=== PATIENT | male | born 1965 | race Caucasian/White ===

== ENCOUNTER 2016-12-26 10:02 | Emergency (ER) | payer MEDICAID ==
[2016-12-26 10:09] VITALS: BMI 27.2
[2016-12-26 10:16] VITALS: TEMP 98.2; O2SAT 98
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
[2016-12-26 11:43] VITALS: BP 128/72; PULSE 72; RESP 18
--- NOTE | 2016-12-26 12:06 | RAD ---
PROCEDURE: Right Foot Radiographs. HISTORY: foot pain, s/p surgery COMPARISON: None. FINDINGS: BONES: Patient is status post multifocal midfoot arthrodesis including the medial cuneiform 1st metatarsal joint and the medial and middle cuneiform joint, both by solitary K-wires. Finally, a solitary K-wire stabilizes the navicular, cuboid and 5th of 5th metatarsal bones. The Lisfranc fractures appreciated with periarticular lucency throughout the midfoot joints suggestive of disuse osteopenia JOINTS: Normal. SOFT TISSUES: Normal. OTHER FINDINGS: None. IMPRESSION: Status post multifocal midfoot arthrodeses with Lisfranc fracture identified. Please see discussion above.
== END 2016-12-26 12:00 | disposition home or self-care (01) ==
LOC: SUPCPDRO 10:02 → C.ER 10:02
DX: G89.18 Other acute postprocedural pain (principal)

== ENCOUNTER 2017-01-18 11:04 | Emergency (ER) | payer MEDICAID ==
[2017-01-18 11:04] VITALS: BMI 27.2
[2017-01-18 11:15] VITALS: O2SAT 99
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
[2017-01-18 13:54] VITALS: PULSE 59
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
[2017-01-18 15:42] VITALS: BP 140/82; RESP 18; TEMP 97.6
== END 2017-01-18 15:42 | disposition home or self-care (01) ==
LOC: C.ER 11:04
DX: S92.901G Unspecified fracture of right foot, subsequent encounter for fracture with delayed healing (principal); V19.40XD Pedal cycle driver injured in collision with unspecified motor vehicles in traffic accident, subsequent encounter
CPT/HCPCS: 97116; 97161; 99284; G8978; G8979; G8980

== ENCOUNTER 2017-02-08 05:39 | Day surgery (SDC) | payer MEDICAID ==
[2017-02-04 08:54] VITALS: BMI 29.4
[2017-02-08 06:51] VITALS: BP 144/86; PULSE 70; RESP 18; TEMP 98.3; O2SAT 99
[2017-02-08] MEDS ORDERED: Propofol 10 mg/ml Inj (20 ML) ONE (07:22)
[2017-02-08] MEDS ORDERED: Midazolam 2 MG/2 ML VIAL ONE (07:22)
== END 2017-02-08 08:00 | disposition home or self-care (01) ==
LOC: C.SDS 05:39
PROVIDERS: ATTEND Podiatrist Foot & Ankle Surgery
DX: Z53.9 Procedure and treatment not carried out, unspecified reason (principal)
CPT/HCPCS: J2250; J2405; J2704; J3010

== ENCOUNTER 2017-02-11 10:26 | Observation (INO) | payer MEDICAID ==
[2017-02-04 08:54] VITALS: BMI 29.4
[2017-02-11] MEDS ORDERED: ceFAZolin IV 2 gm in Dextrose 1 GM/50 ML BAG IVPB ONE ×2 (12:42→16:32)
[2017-02-11] MEDS ORDERED: Bupivacaine 0.5% Inj(30mL) ONE ×2 (12:42→17:31)
[2017-02-11] MEDS ORDERED: Midazolam 2 MG/2 ML VIAL ONE (12:51)
[2017-02-11] MEDS ORDERED: Propofol 10 mg/ml Inj (20 ML) ONE ×2 (12:51→13:40)
[2017-02-11] MEDS ORDERED: Morphine 4 MG/ML VIAL ONE ×2 (15:48→17:10)
[2017-02-11] MEDS ORDERED: Lactated Ringer's 1,000 ML IV ONE (15:52)
[2017-02-11] MEDS ORDERED: Oxycodone/Acetaminophen 5/325 mg Tab PO PRN (17:36)
--- NOTE | 2017-02-11 17:39 | PCM.SURG1 ---
Surgeon's Initial Post Op Note - Surgeon's Notes Surgeon: Melo Receivables Specialist: Cali PGY 3, Arden PGY 2 Type of Anesthesia: General LMA, Local Pre-Operative Diagnosis: Right lis franc dislocation Operative Findings: see dictation Post-Operative Diagnosis: Same Operation Performed: Right lis fracn ORIF with fusion of 1st/2nd MT Specimen/Specimens Removed: none Estimated Blood Loss: EBL {In ML}: 30 Blood Products Given: N/A Drains Used: No Drains Post-Op Condition: Good Date of Surgery/Procedure: 02/11/17 Time of Surgery/Procedure: 17:38
[2017-02-11] MEDS ORDERED: Sodium Chloride 0.45% 1,000 ML IV SCH ×2 (18:00→21:27)
[2017-02-11] MEDS ORDERED: HYDROmorphone 0.5 mg/0.5 ml ISec IVP PRN (18:04)
[2017-02-11] MEDS: Oxycodone/Acetaminophen 5/325 mg Tab PO PRN (20:46)
--- NOTE | 2017-02-11 21:26 | CP.PCM.HP ---
<Spring Richardson - Last Filed: 02/11/17 21:58> History of Present Illness - History of Present Illness History of Present Illness: Medicine Consult Note for Hospitalist Service CC: post - op management HPI: 51M with no significant PMHx is admitted to Med/Surg s/p ORIF of 1st and 2nd metatarsal. Medicine Team was consulted for post op management. Patient reports no acute complaints, pain is well controlled . Denied fever, chills, headache, chest pain, SOB, abdominal pain, n/v/d/c, or urinary symptoms. PMHx: Denied PSHx: Denied Meds: Denied All: NKDA SHx: Denied any tobacco, alcohol, or illicit drug use FHx: Unremarkable PMD: Dr. Farmer Podiatry: Dr. Alejo Present on Admission - Present on Admission Any Indicators Present on Admission: No Past Patient History - Infectious Disease Hx of Infectious Diseases: None - Past Medical History & Family History Past Medical History?: No - Past Social History Smoking Status: Never Smoked - CARDIAC Hx Cardiac Disorders: No - PULMONARY Hx Respiratory Disorders: No - NEUROLOGICAL Hx Neurological Disorder: No - HEENT Hx HEENT Problems: Yes Other/Comment: wear eyeglasses at all times - RENAL Hx Chronic Kidney Disease: No - ENDOCRINE/METABOLIC Hx Endocrine Disorders: No - HEMATOLOGICAL/ONCOLOGICAL Hx Blood Disorders: No - INTEGUMENTARY Hx Dermatological Problems: No - MUSCULOSKELETAL/RHEUMATOLOGICAL Hx Falls: No - GASTROINTESTINAL Hx Gastrointestinal Disorders: Yes (HX ANAL FISSURECTOMY) - GENITOURINARY/GYNECOLOGICAL Hx Genitourinary Disorders: No - PSYCHIATRIC Hx Psychophysiologic Disorder: No Hx Physical Abuse: No Hx Substance Use: No - SURGICAL HISTORY Hx Surgeries: Yes Hx Open Reduction Internal Fixation: Yes (RIGHT FOOT/wire right foot) Other/Comment: REPAIR ANAL FISSURE - ANESTHESIA Hx Anesthesia: Yes Hx Anesthesia Reactions: No Hx Malignant Hyperthermia: No Has any member of the family had a problem w/ anesthesia?: No Meds Allergies/Adverse Reactions: Allergies Allergy/AdvReac Type Severity Reaction Status Date / Time No Known Allergies Allergy Verified 01/18/17 11:12 Physical Exam - Constitutional Appears: No Acute Distress - Head Exam Head Exam: NORMAL INSPECTION, NORMOCEPHALIC - Eye Exam Eye Exam: EOMI, PERRL Pupil Exam: NORMAL ACCOMODATION - ENT Exam ENT Exam: Mucous Membranes Moist, Normal Exam - Respiratory Exam Respiratory Exam: Clear to Auscultation Bilateral, NORMAL BREATHING PATTERN - Cardiovascular Exam Cardiovascular Exam: REGULAR RHYTHM - GI/Abdominal Exam GI & Abdominal Exam: Normal Bowel Sounds, Soft. absent: Distended, Tenderness - Extremities Exam Extremities exam: Positive for: normal inspection, pedal pulses present. Negative for: pedal edema, tenderness Additional comments: right foot in boot - Neurological Exam Neurological exam: Alert, Oriented x3 - Psychiatric Exam Psychiatric exam: Normal Affect, Normal Mood - Skin Skin Exam: Dry, Intact, Normal Color, Warm Results - Vital Signs Recent Vital Signs: Last Vital Signs Temp 97.6 F 02/11/17 19:52 Pulse 87 02/11/17 19:52 Resp 12 02/11/17 19:52 BP 144/71 02/11/17 19:52 Pulse Ox 99 02/11/17 19:52 - Labs Labs: Laboratory Results - last 24 hr 02/11/17 19:55 POC Glucose (mg/dL) 153 H Assessment & Plan - Assessment and Plan (Free Text) Plan: S/P R ORIF 1st and 2nd Metatarsal * POD #0 * Podiatry - Dr. Alejo * Tylenol PRN for pain, Percocet PRN for pain, Zofran PRN for nausea - as per primary team, added Colace 100mg PO TID due to opiod * All management as per primary team, podiatry Routine labs, HGA1C, and Lipid Panel ordered for tomorrow AM. Prophylactic Measures * GI PPX: Protonix 40mg PO daily * DVT PPX: SCDs, anticoagulant to be resumed by primary team, podiatry * Regular Diet DW Debra Farmer DO, PGY1 <Mario Alberto Melvin - Last Filed: 02/12/17 06:29> Results - Vital Signs Recent Vital Signs: Last Vital Signs Temp 98.5 F 02/11/17 23:20 Pulse 81 02/11/17 23:20 Resp 20 02/11/17 23:20 BP 119/72 02/11/17 23:20 Pulse Ox 95 02/11/17 23:20 - Labs Labs: Laboratory Results - last 24 hr 02/11/17 02/11/17 19:55 21:22 POC Glucose (mg/dL) 153 H 183 H Assessment & Plan - Date & Time Date: 02/12/17 (I have seen and examined the patient. I agree with the findings and plan of care as documented by Dr. Richardson. Patient s/p ORIF of 1st and 2nd metatarsal. Consulted by Podiatry to manage medical issues. Will monitor for acute changes.) Time: 06:28 Attending/Attestation - Attestation I have personally seen and examined this patient.: Yes I have fully participated in the care of the patient.: Yes I have reviewed all pertinent clinical information: Yes
[2017-02-12] MEDS: Oxycodone/Acetaminophen 5/325 mg Tab PO PRN ×3 (03:50→18:22)
[2017-02-12 07:22] LABS: BASO % 0.2 % (0.0-2.0); EOS % 0.3 % (0.0-4.0); LYMPH # 2.2 K/uL (1.0-4.3); LYMPH % 20.1 % (20.0-40.0); MEAN CELL VOLUME 72.5 fL (80.0-94.0); MEAN CORPUSCULAR HEMOGLOBIN 23.2 pg (27.0-31.0); MEAN PLATELET VOLUME 8.3 fL (7.2-11.7); MONO # 0.8 K/uL (0.0-0.8); NRBC % 0.1 % (0.0-2.0); RED CELL DISTRIBUTION WIDTH 14.7 % (11.5-14.5); WHITE BLOOD COUNT 11.2 K/uL (4.8-10.8)
[2017-02-12 07:52] LABS: CHLORIDE 100 mmol/L (98-107)
[2017-02-12 07:53] LABS: POTASSIUM 3.4 mmol/L (3.6-5.2); SODIUM 136 mmol/L (132-148)
[2017-02-12 07:55] LABS: CARBON DIOXIDE 25 mmol/L (22-30); CHOLESTEROL 135 mg/dL (0-199); GFR AFRICAN-AMERICAN > 60
[2017-02-12 07:56] LABS: ALKALINE PHOSPHATASE 51 U/L (38-126); ALT/SGPT 36 U/L (21-72); AST/SGOT 20 U/L (17-59); BILIRUBIN,TOTAL 0.8 mg/dL (0.2-1.3); BLOOD UREA NITROGEN 18 mg/dL (9-20); GLUCOSE,RANDOM 94 mg/dL (75-110); PHOSPHOROUS 3.3 mg/dL (2.5-4.5); TOTAL PROTEIN 6.2 g/dL (6.3-8.3)
[2017-02-12 07:57] LABS: MAGNESIUM 1.4 mg/dL (1.6-2.3)
[2017-02-12] MEDS: (Novolin R) Insulin Human Regular 100 units/ml vial SC SCH ×4 (08:28→22:00)
--- NOTE | 2017-02-12 08:36 | CP.PCM.PN ---
<Robin Ramsey - Last Filed: 02/12/17 13:27> Subjective - Date & Time of Evaluation Date of Evaluation: 02/12/17 Time of Evaluation: 08:35 - Subjective Subjective: PGY-[address] Reis's Service: Pt seen and examined at bedside. Pt POD #1 ORIF 1st/2nd metatarsal. Pt reports "unbearable pain in right leg." He reports sleeping poorly overnight, waking up every half hour. He is able to wiggle his toes when instructed. He states he has been using incentive spirometer every hour. He denies headache, chest pain, SOB, palpitations, abdominal pain, N/V. Objective - Vital Signs/Intake and Output Vital Signs (last 24 hours): Temp Pulse Resp BP Pulse Ox 98.5 F 81 20 119/72 95 02/11/17 23:20 02/11/17 23:20 02/11/17 23:20 02/11/17 23:20 02/11/17 23:20 Intake and Output: 02/12/17 02/12/17 06:59 18:59 Intake Total 550 Output Total 1450 Balance -900 - Medications Medications: Current Medications Acetaminophen (Tylenol 325mg Tab) 650 mg PO Q6 PRN PRN Reason: Pain, Mild (1-3) Docusate Sodium (Colace) 100 mg PO TID CONSUELO Magnesium Sulfate/Dextrose (Magnesium Sulfate 1 Gm/100 Ml D5w) 1 gm in 100 mls @ 150 mls/hr IVPB Q30M [facility] Stop: 02/12/17 09:44 Insulin Human Regular (Novolin R) 0 unit SC ACHS CONSUELO PRN Reason: Protocol Last Admin: 02/12/17 08:28 Dose: Not Given Ondansetron HCl (Zofran Inj) 4 mg IVP Q6 PRN PRN Reason: Nausea/Vomiting Oxycodone/Acetaminophen (Percocet 5/325 Mg Tab) 1 tab PO Q6H PRN PRN Reason: Pain, moderate (4-7) Stop: 02/14/17 17:37 Oxycodone/Acetaminophen (Percocet 5/325 Mg Tab) 2 tab PO Q6H PRN PRN Reason: Pain, severe (8-10) Stop: 02/14/17 17:37 Last Admin: 02/12/17 03:50 Dose: 2 tab Pantoprazole Sodium (Protonix Ec Tab) 40 mg PO DAILY CONSUELO Potassium Chloride (K-Dur 20 Meq Er Tab) 40 meq PO Q4H CONSUELO Stop: 02/12/17 12:46 - Labs Labs: 02/12/17 07:03 02/12/17 07:03 - Constitutional Appears: Non-toxic, No Acute Distress - Head Exam Head Exam: ATRAUMATIC, NORMAL INSPECTION - Eye Exam Eye Exam: EOMI, Normal appearance. absent: Scleral icterus - ENT Exam ENT Exam: Mucous Membranes Moist - Neck Exam Neck Exam: Full ROM - Respiratory Exam Respiratory Exam: Clear to Ausculation Bilateral, NORMAL BREATHING PATTERN. absent: Rales, Rhonchi, Wheezes - Cardiovascular Exam Cardiovascular Exam: REGULAR RHYTHM, +S1, +S2 - GI/Abdominal Exam GI & Abdominal Exam: Soft, Normal Bowel Sounds. absent: Tenderness - Extremities Exam Extremities Exam: Tenderness Additional comments: POD #1 ORIF C/D/I cast right ankle Sensation intact, able to wiggle toes cap refill < 2 sec - Neurological Exam Neurological Exam: Alert, Awake, Oriented x3 - Psychiatric Exam Psychiatric exam: Normal Affect, Normal Mood - Skin Skin Exam: Normal Color, Warm Assessment and Plan - Assessment and Plan (Free Text) Plan: S/P R ORIF 1st and 2nd Metatarsal * POD #1 * Podiatry - Dr. Alejo * Tylenol PRN for pain, Percocet PRN for pain, Zofran PRN for nausea - as per primary team * Colace 100mg PO TID due to opiod * Toradol 30mg IV STAT * All management as per primary team, podiatry Lipid Panel WNL f/u HgbA1c (not drawn on weekends) Elevated blood glucose Lower today f/u A1C Electrolyte abnormalities Mg 1.4, repleted IV K 3.4, repleted Kdur 40mg PO x 2 Disposition: Primary team, podiatry, looking to discharge home this weekend Prophylactic Measures * GI PPX: Protonix 40mg PO daily * DVT PPX: SCDs * f.u recommendations from podiatry regarding starting anticoagulant * Regular Diet <Shawanda Reis V - Last Filed: 02/12/17 20:27> Objective - Vital Signs/Intake and Output Vital Signs (last 24 hours): Temp Pulse Resp BP Pulse Ox 98.4 F 82 20 123/74 95 02/12/17 15:12 02/12/17 15:12 02/12/17 15:12 02/12/17 15:12 02/12/17 15:12 Intake and Output: 02/12/17 02/13/17 18:59 06:59 Intake Total 200 Output Total 1100 Balance -900 - Medications Medications: Current Medications Acetaminophen (Tylenol 325mg Tab) 650 mg PO Q6 PRN PRN Reason: Pain, Mild (1-3) Docusate Sodium (Colace) 100 mg PO TID [facility] Last Admin: 02/12/17 18:22 Dose: 100 mg Heparin Sodium (Porcine) (Heparin) 5,000 units SC Q8 CONSUELO Insulin Human Regular (Novolin R) 0 unit SC ACHS CONSUELO PRN Reason: Protocol Last Admin: 02/12/17 18:20 Dose: Not Given Ondansetron HCl (Zofran Inj) 4 mg IVP Q6 PRN PRN Reason: Nausea/Vomiting Oxycodone/Acetaminophen (Percocet 5/325 Mg Tab) 1 tab PO Q6H PRN PRN Reason: Pain, moderate (4-7) Stop: 02/14/17 17:37 Oxycodone/Acetaminophen (Percocet 5/325 Mg Tab) 2 tab PO Q6H PRN PRN Reason: Pain, severe (8-10) Stop: 02/14/17 17:37 Last Admin: 02/12/17 18:22 Dose: 2 tab Pantoprazole Sodium (Protonix Ec Tab) 40 mg PO DAILY [facility] Last Admin: 02/12/17 10:14 Dose: 40 mg - Labs Labs: 02/12/17 07:03 02/12/17 07:03 Attending/Attestation - Attestation I have personally seen and examined this patient.: Yes I have fully participated in the care of the patient.: Yes I have reviewed all pertinent clinical information, including history, physical exam and plan: Yes Notes (Text): Patient seen, examined, and case discussed with day-time resident. Medicine is on consult. Preoperative. intraoperative and postoperative management per podiatry. Pain management per podiatry. Anticoagulation per podiatry. Electrolytes repleted today. Discharge planning per podiatry Assessment/Plan 1) S/P R ORIF 1st and 2nd Metatarsal * POD #1 * Podiatry - Dr. Alejo * Tylenol PRN for pain, Percocet PRN for pain, Zofran PRN for nausea - as per primary team * Preoperative. intraoperative and postoperative management per podiatry. * Pain management per podiatry. * Anticoagulation per podiatry. * Colace 100mg PO TID due to opiod 2) Elevated blood glucose * Monitor Accuchecks QAC ans HD * f/u A1C 3) Electrolyte abnormalities * Mg 1.4-->repleted-->monitor * K 3.4-->repleted-->monitor 4) Prophylactic Measures * GI PPX: Protonix 40mg PO daily * DVT PPX: SCDs * Per podiatry, start heparin 5000 units subq 8H * Regular Diet
[2017-02-12] MEDS: Potassium Chloride 20 mEq ER Tab PO SCH ×2 (09:14→13:45)
[2017-02-12] MEDS: Magnesium Sulfate 1 gm in D5W 1 GM/100 ML BAG IVPB SCH ×2 (09:14→10:20)
--- NOTE | 2017-02-12 09:15 | RAD ---
PROCEDURE: Right Foot Radiographs. HISTORY: s/p right foot surgery COMPARISON: Comparison is made to 12/26/2016 FINDINGS: BONES: Interval insertion of plate and screws at the 1st tarsal metatarsal and at 2nd tarsal metatarsal regions. Interval insertion also of screw through the proximal 2nd metatarsal to the tarsal bone. The right foot is in cast which limits the evaluation for fine details. Region JOINTS: Arthritic changes at the tarsal metatarsal joints SOFT TISSUES: Normal. OTHER FINDINGS: None. IMPRESSION: Status post new hardware fixation at the 1st and 2nd tarsal metatarsal joints. The right ankle and foot seen in cast which limits the evaluation for fine details.
[2017-02-12] MEDS: Pantoprazole 40 mg EC Tab PO SCH (10:14)
--- NOTE | 2017-02-12 18:28 | CP.PCM.PN ---
Subjective - Date & Time of Evaluation Date of Evaluation: 02/12/17 Time of Evaluation: 12:00 - Subjective Subjective: Podiatry Progress Note - Dr. Alejo 51 year old male patient seen at bedside POD#1 Right lisfranc ORIF with fusion of 1st/2nd MT (DOS: 02/11/17). Patient seen resting comfortably at time of visit however is complaining of moderate pain to right leg. Patient denies any acute overnight events. Patient denies N/V/F/D/C/SOB/calf pain. Offers no other pedal complaints at this time. Objective - Vital Signs/Intake and Output Vital Signs (last 24 hours): Temp Pulse Resp BP Pulse Ox 98.4 F 82 20 123/74 95 02/12/17 15:12 02/12/17 15:12 02/12/17 15:12 02/12/17 15:12 02/12/17 15:12 Intake and Output: 02/12/17 02/12/17 06:59 18:59 Intake Total 550 200 Output Total 1450 1100 Balance -900 -900 - Medications Medications: Current Medications Acetaminophen (Tylenol 325mg Tab) 650 mg PO Q6 PRN PRN Reason: Pain, Mild (1-3) Docusate Sodium (Colace) 100 mg PO TID [facility] Last Admin: 02/12/17 13:45 Dose: 100 mg Heparin Sodium (Porcine) (Heparin) 5,000 units SC Q8 [facility] Insulin Human Regular (Novolin R) 0 unit SC ACHS [facility] PRN Reason: Protocol Last Admin: 02/12/17 18:20 Dose: Not Given Ondansetron HCl (Zofran Inj) 4 mg IVP Q6 PRN PRN Reason: Nausea/Vomiting Oxycodone/Acetaminophen (Percocet 5/325 Mg Tab) 1 tab PO Q6H PRN PRN Reason: Pain, moderate (4-7) Stop: 02/14/17 17:37 Oxycodone/Acetaminophen (Percocet 5/325 Mg Tab) 2 tab PO Q6H PRN PRN Reason: Pain, severe (8-10) Stop: 02/14/17 17:37 Last Admin: 02/12/17 12:30 Dose: 2 tab Pantoprazole Sodium (Protonix Ec Tab) 40 mg PO DAILY [facility] Last Admin: 02/12/17 10:14 Dose: 40 mg - Labs Labs: 02/12/17 07:03 02/12/17 07:03 - Constitutional Appears: Well, Non-toxic, No Acute Distress - Extremities Exam Additional comments: Dressing to RLE appears clean/dry/intact with no strikethrough noted CFT <3 seconds to all distal osiris Active ROM noted to all digits No pain upon compression of right calf - Neurological Exam Neurological Exam: Alert, Awake, Oriented x3 - Psychiatric Exam Psychiatric exam: Normal Affect, Normal Mood Assessment and Plan - Assessment and Plan (Free Text) Assessment: 51 year old male POD#1 right lisfranc ORIF with fusion of 1st/2nd MT Plan: Patient seen and evaluated at bedside Discussed with attending, Dr. Alejo Labs and vitals reviewed - WBC 11.2, afebrile Start DVT prophylaxis - heparin Continue pain management Podiatry will continue to follow patient while in house
[2017-02-13] MEDS: Oxycodone/Acetaminophen 5/325 mg Tab PO PRN ×4 (00:18→21:15)
--- NOTE | 2017-02-13 06:47 | CP.PCM.PN ---
<Robin Ramsey - Last Filed: 02/13/17 11:52> Subjective - Date & Time of Evaluation Date of Evaluation: 02/13/17 Time of Evaluation: 06:45 - Subjective Subjective: PGY-[address] Reis's Service: Pt seen and examined at bedside. Pt POD #2 ORIF 1st/2nd metatarsal. Pt states he is still in pain, but less so than yesterday and admits the percocet helps. He reports using incentive spirometer often. He denies chest pain, SOB, abd pain , N/V/D/C. He admits tolerating diet and passing gas. He denies bowel movement since surgery. Objective - Vital Signs/Intake and Output Vital Signs (last 24 hours): Temp Pulse Resp BP Pulse Ox 98 F 81 20 109/60 96 02/12/17 23:17 02/12/17 23:17 02/12/17 23:17 02/12/17 23:17 02/12/17 23:17 Intake and Output: 02/12/17 02/13/17 18:59 06:59 Intake Total 200 Output Total 1100 Balance -900 - Medications Medications: Current Medications Acetaminophen (Tylenol 325mg Tab) 650 mg PO Q6 PRN PRN Reason: Pain, Mild (1-3) Docusate Sodium (Colace) 100 mg PO TID [facility] Last Admin: 02/12/17 18:22 Dose: 100 mg Heparin Sodium (Porcine) (Heparin) 5,000 units SC Q8 [facility] Last Admin: 02/13/17 05:08 Dose: 5,000 units Insulin Human Regular (Novolin R) 0 unit SC ACHS [facility] PRN Reason: Protocol Last Admin: 02/12/17 22:00 Dose: Not Given Ondansetron HCl (Zofran Inj) 4 mg IVP Q6 PRN PRN Reason: Nausea/Vomiting Oxycodone/Acetaminophen (Percocet 5/325 Mg Tab) 1 tab PO Q6H PRN PRN Reason: Pain, moderate (4-7) Stop: 02/14/17 17:37 Oxycodone/Acetaminophen (Percocet 5/325 Mg Tab) 2 tab PO Q6H PRN PRN Reason: Pain, severe (8-10) Stop: 02/14/17 17:37 Last Admin: 02/13/17 06:40 Dose: 2 tab Pantoprazole Sodium (Protonix Ec Tab) 40 mg PO DAILY [facility] Last Admin: 02/12/17 10:14 Dose: 40 mg - Labs Labs: 02/12/17 07:03 02/12/17 07:03 - Additional Findings Additional findings: - Constitutional Appears: Non-toxic, No Acute Distress - Head Exam Head Exam: ATRAUMATIC, NORMAL INSPECTION - Eye Exam Eye Exam: EOMI, Normal appearance. absent: Scleral icterus - ENT Exam ENT Exam: Mucous Membranes Moist - Neck Exam Neck Exam: Full ROM - Respiratory Exam Respiratory Exam: Clear to Ausculation Bilateral, NORMAL BREATHING PATTERN. absent: Rales, Rhonchi, Wheezes - Cardiovascular Exam Cardiovascular Exam: REGULAR RHYTHM, +S1, +S2 - GI/Abdominal Exam GI & Abdominal Exam: Soft, Normal Bowel Sounds. absent: Tenderness - Extremities Exam Extremities Exam: Tenderness Additional comments: POD #2 ORIF C/D/I cast right ankle Sensation intact, able to wiggle toes cap refill < 2 sec No calf tenderness - Neurological Exam Neurological Exam: Alert, Awake, Oriented x3 - Psychiatric Exam Psychiatric exam: Normal Affect, Normal Mood Assessment and Plan - Assessment and Plan (Free Text) Plan: S/P R ORIF 1st and 2nd Metatarsal * POD #2 * Podiatry - Dr. Alejo * Tylenol PRN for pain, Percocet PRN for pain, Zofran PRN for nausea - as per primary team * Colace 100mg PO TID due to opioid * Toradol 30mg IV STAT * All management as per primary team, podiatry Lipid Panel WNL f/u HgbA1c (not drawn on weekends) Elevated blood glucose Accuchecks f/u A1C Electrolyte abnormalities Hypokalemia, hypomagnesemia resolved Disposition: Primary team, podiatry, looking to discharge home this weekend Prophylactic Measures * GI PPX: Protonix 40mg PO daily * DVT PPX: SCDs, Heparin 5000u Q8H * Regular Diet Robin Ramsey PGY-2 <Shawanda Reis V - Last Filed: 02/14/17 08:08> Objective - Vital Signs/Intake and Output Vital Signs (last 24 hours): Temp Pulse Resp BP Pulse Ox 98.2 F 74 20 110/68 96 02/13/17 23:25 02/13/17 15:20 10/15/17 15:20 02/13/17 23:25 02/13/17 15:20 Intake and Output: 02/14/17 02/14/17 06:59 18:59 Intake Total 420 Output Total 550 Balance -130 - Medications Medications: Current Medications Acetaminophen (Tylenol 325mg Tab) 650 mg PO Q6 PRN PRN Reason: Pain, Mild (1-3) Docusate Sodium (Colace) 100 mg PO TID [facility] Last Admin: 02/13/17 18:19 Dose: 100 mg Heparin Sodium (Porcine) (Heparin) 5,000 units SC Q8 [facility] Last Admin: 02/14/17 06:13 Dose: 5,000 units Insulin Human Regular (Novolin R) 0 unit SC ACHS [facility] PRN Reason: Protocol Last Admin: 02/14/17 08:05 Dose: Not Given Ondansetron HCl (Zofran Inj) 4 mg IVP Q6 PRN PRN Reason: Nausea/Vomiting Oxycodone/Acetaminophen (Percocet 5/325 Mg Tab) 1 tab PO Q6H PRN PRN Reason: Pain, moderate (4-7) Stop: 02/14/17 17:37 Oxycodone/Acetaminophen (Percocet 5/325 Mg Tab) 2 tab PO Q6H PRN PRN Reason: Pain, severe (8-10) Stop: 02/14/17 17:37 Last Admin: 02/14/17 06:09 Dose: 2 tab Pantoprazole Sodium (Protonix Ec Tab) 40 mg PO DAILY [facility] Last Admin: 02/13/17 11:03 Dose: 40 mg - Labs Labs: 02/14/17 06:26 02/14/17 06:26 Attending/Attestation - Attestation I have personally seen and examined this patient.: Yes I have fully participated in the care of the patient.: Yes I have reviewed all pertinent clinical information, including history, physical exam and plan: Yes Notes (Text): This is late computer entry for 02/13/17. Patient seen, examined, and case discussed with day-time resident. Medicine is on consult. Preoperative. intraoperative and postoperative management per podiatry. Pain management per podiatry. Anticoagulation per podiatry. Patient reports has not had bpwel movement for two days. monitor for bowel movement. Discharge planning per podiatry Assessment/Plan 1) S/P R ORIF 1st and 2nd Metatarsal * POD #2 * Podiatry - Dr. Alejo * Tylenol PRN for pain, Percocet PRN for pain, Zofran PRN for nausea - as per primary team * Preoperative. intraoperative and postoperative management per podiatry. * Pain management per podiatry. * Anticoagulation per podiatry. * Colace 100mg PO TID due to opiod 2) Elevated blood glucose * Monitor Accuchecks QAC ans HD * f/u A1C 3) Electrolyte abnormalities * monitor amd replete 4) Prophylactic Measures * GI PPX: Protonix 40mg PO daily * DVT PPX: SCDs * Per podiatry, start heparin 5000 units subq 8H * Regular Diet
[2017-02-13] MEDS: (Novolin R) Insulin Human Regular 100 units/ml vial SC SCH ×4 (08:01→23:01)
[2017-02-13 09:03] LABS: BASO % 0.4 % (0.0-2.0); EOS # 0.1 K/uL (0.0-0.7); EOS % 1.5 % (0.0-4.0); HEMATOCRIT 35.4 % (35.0-51.0); LYMPH # 1.9 K/uL (1.0-4.3); LYMPH % 18.9 % (20.0-40.0); MEAN CELL VOLUME 72.7 fL (80.0-94.0); MEAN CORPUSCULAR HEMOGLOBIN 23.8 pg (27.0-31.0); MEAN CORPUSCULAR HGB CONC 32.8 g/dL (33.0-37.0); MEAN PLATELET VOLUME 8.2 fL (7.2-11.7); MONO # 0.9 K/uL (0.0-0.8); MONO % 8.8 % (0.0-10.0); NRBC % 0.1 % (0.0-2.0); RED CELL DISTRIBUTION WIDTH 14.3 % (11.5-14.5); WHITE BLOOD COUNT 9.8 K/uL (4.8-10.8)
[2017-02-13 09:20] LABS: CHLORIDE 102 mmol/L (98-107)
[2017-02-13 09:21] LABS: SODIUM 136 mmol/L (132-148)
[2017-02-13 09:23] LABS: ALB/GLOB RATIO 0.8 (1.0-2.1); ALKALINE PHOSPHATASE 68 U/L (38-126); ALT/SGPT 30 U/L (21-72); AST/SGOT 19 U/L (17-59); BILIRUBIN,TOTAL 0.7 mg/dL (0.2-1.3); BLOOD UREA NITROGEN 12 mg/dL (9-20); CARBON DIOXIDE 25 mmol/L (22-30); GFR AFRICAN-AMERICAN > 60; GLUCOSE,RANDOM 90 mg/dL (75-110); PHOSPHOROUS 2.3 mg/dL (2.5-4.5); TOTAL PROTEIN 7.3 g/dL (6.3-8.3)
[2017-02-13 09:24] LABS: CALCIUM 8.5 mg/dl (8.6-10.4); MAGNESIUM 1.8 mg/dL (1.6-2.3)
[2017-02-13] MEDS: Pantoprazole 40 mg EC Tab PO SCH (11:03)
--- NOTE | 2017-02-13 12:28 | CP.PCM.PN ---
Subjective - Date & Time of Evaluation Date of Evaluation: 02/13/17 Time of Evaluation: 13:30 - Subjective Subjective: Podiatry Progress Note - Dr. Alejo 51 year old male patient seen at bedside POD#2 Right lisfranc ORIF with fusion of 1st/2nd MT (DOS: 02/11/17). Patient seen resting comfortably at time of visit. Patient continues to complain of pain at his surgical site. Patient states he has been able to ambulate while using a walker without any issues. Patient denies N/V/F/D/C/SOB/calf pain. Offers no other pedal complaints at this time. Objective - Vital Signs/Intake and Output Vital Signs (last 24 hours): Temp Pulse Resp BP Pulse Ox 98.3 F 76 18 121/66 95 02/13/17 07:40 02/13/17 07:40 02/13/17 07:40 02/13/17 07:40 02/13/17 07:40 Intake and Output: 02/13/17 02/13/17 06:59 18:59 Intake Total 500 Output Total 400 Balance 100 - Medications Medications: Current Medications Acetaminophen (Tylenol 325mg Tab) 650 mg PO Q6 PRN PRN Reason: Pain, Mild (1-3) Docusate Sodium (Colace) 100 mg PO TID [facility] Last Admin: 02/13/17 11:03 Dose: 100 mg Heparin Sodium (Porcine) (Heparin) 5,000 units SC Q8 [facility] Last Admin: 02/13/17 05:08 Dose: 5,000 units Insulin Human Regular (Novolin R) 0 unit SC ACHS [facility] PRN Reason: Protocol Last Admin: 02/13/17 08:01 Dose: Not Given Ondansetron HCl (Zofran Inj) 4 mg IVP Q6 PRN PRN Reason: Nausea/Vomiting Oxycodone/Acetaminophen (Percocet 5/325 Mg Tab) 1 tab PO Q6H PRN PRN Reason: Pain, moderate (4-7) Stop: 02/14/17 17:37 Oxycodone/Acetaminophen (Percocet 5/325 Mg Tab) 2 tab PO Q6H PRN PRN Reason: Pain, severe (8-10) Stop: 02/14/17 17:37 Last Admin: 02/13/17 06:40 Dose: 2 tab Pantoprazole Sodium (Protonix Ec Tab) 40 mg PO DAILY [facility] Last Admin: 02/13/17 11:03 Dose: 40 mg - Labs Labs: 02/13/17 08:22 02/13/17 08:22 - Constitutional Appears: Well, Non-toxic, No Acute Distress - Extremities Exam Additional comments: Dressing to RLE appears clean/dry/intact with no strikethrough noted CFT <3 seconds to all distal osiris Active ROM noted to all digits No pain upon compression of right calf - Neurological Exam Neurological Exam: Alert, Awake, Oriented x3 - Psychiatric Exam Psychiatric exam: Normal Affect, Normal Mood Assessment and Plan - Assessment and Plan (Free Text) Assessment: 51 year old male POD#2 right lisfranc ORIF with fusion of 1st/2nd MT Plan: Patient seen and evaluated at bedside Discussed with attending, Dr. Alejo Labs and vitals reviewed - WBC 9.8, afebrile Continue pain management Stable from podiatry standpoint Plan for discharge tomorrow Podiatry will continue to follow patient while in house
[2017-02-13 17:32] VITALS: RESP 20
[2017-02-14] MEDS: Oxycodone/Acetaminophen 5/325 mg Tab PO PRN ×2 (06:09→12:29)
[2017-02-14 06:40] LABS: BASO # 0.1 K/uL (0.0-0.2); BASO % 0.6 % (0.0-2.0); EOS # 0.2 K/uL (0.0-0.7); EOS % 1.8 % (0.0-4.0); HEMATOCRIT 37.9 % (35.0-51.0); LYMPH # 2.6 K/uL (1.0-4.3); LYMPH % 28.6 % (20.0-40.0); MEAN CELL VOLUME 72.7 fL (80.0-94.0); MEAN CORPUSCULAR HEMOGLOBIN 23.6 pg (27.0-31.0); MEAN CORPUSCULAR HGB CONC 32.4 g/dL (33.0-37.0); MONO # 0.8 K/uL (0.0-0.8); MONO % 9.1 % (0.0-10.0); NRBC % 0.1 % (0.0-2.0); RED CELL DISTRIBUTION WIDTH 14.2 % (11.5-14.5); WHITE BLOOD COUNT 9.2 K/uL (4.8-10.8)
[2017-02-14 07:44] LABS: CHLORIDE 102 mmol/L (98-107); POTASSIUM 4.3 mmol/L (3.6-5.2); SODIUM 137 mmol/L (132-148)
[2017-02-14 07:46] LABS: BILIRUBIN,TOTAL 0.6 mg/dL (0.2-1.3); CARBON DIOXIDE 26 mmol/L (22-30); GFR AFRICAN-AMERICAN > 60
[2017-02-14 07:47] LABS: ALB/GLOB RATIO 1.1 (1.0-2.1); ALKALINE PHOSPHATASE 69 U/L (38-126); ALT/SGPT 31 U/L (21-72); AST/SGOT 25 U/L (17-59); BLOOD UREA NITROGEN 14 mg/dL (9-20); GLUCOSE,RANDOM 97 mg/dL (75-110); PHOSPHOROUS 3.2 mg/dL (2.5-4.5)
[2017-02-14 07:48] LABS: CALCIUM 8.8 mg/dl (8.6-10.4); MAGNESIUM 1.7 mg/dL (1.6-2.3)
[2017-02-14] MEDS: (Novolin R) Insulin Human Regular 100 units/ml vial SC SCH ×2 (08:05→12:31)
[2017-02-14 08:50] VITALS: BP 123/70; PULSE 75; TEMP 97.9; O2SAT 97
[2017-02-14] MEDS ORDERED: Bisacodyl 5mg EC Tab PO ONE (09:19)
--- NOTE | 2017-02-14 09:19 | CP.PCM.PN ---
<DebraSpring - Last Filed: 02/14/17 09:13> Subjective - Date & Time of Evaluation Date of Evaluation: 02/14/17 Time of Evaluation: 08:00 - Subjective Subjective: Medicine Consult Note Patient was seen and examined at bedside. Pt POD #3 ORIF 1st/2nd metatarsal. Patient reports his pain is well controlled. Denied fever, chills, headache, chest pain, SOB, abdominal pain, n/v/d/c/, or urinary symptoms. Objective - Vital Signs/Intake and Output Vital Signs (last 24 hours): Temp Pulse Resp BP Pulse Ox 97.9 F 75 20 123/70 97 02/14/17 07:40 02/14/17 07:40 02/14/17 07:40 02/14/17 07:40 02/14/17 07:40 Intake and Output: 02/14/17 02/14/17 06:59 18:59 Intake Total 420 Output Total 550 Balance -130 - Medications Medications: Current Medications Acetaminophen (Tylenol 325mg Tab) 650 mg PO Q6 PRN PRN Reason: Pain, Mild (1-3) Docusate Sodium (Colace) 100 mg PO TID [facility] Last Admin: 02/13/17 18:19 Dose: 100 mg Heparin Sodium (Porcine) (Heparin) 5,000 units SC Q8 [facility] Last Admin: 02/14/17 06:13 Dose: 5,000 units Insulin Human Regular (Novolin R) 0 unit SC ACHS [facility] PRN Reason: Protocol Last Admin: 02/14/17 08:05 Dose: Not Given Ondansetron HCl (Zofran Inj) 4 mg IVP Q6 PRN PRN Reason: Nausea/Vomiting Oxycodone/Acetaminophen (Percocet 5/325 Mg Tab) 1 tab PO Q6H PRN PRN Reason: Pain, moderate (4-7) Stop: 02/14/17 17:37 Oxycodone/Acetaminophen (Percocet 5/325 Mg Tab) 2 tab PO Q6H PRN PRN Reason: Pain, severe (8-10) Stop: 02/14/17 17:37 Last Admin: 02/14/17 06:09 Dose: 2 tab Pantoprazole Sodium (Protonix Ec Tab) 40 mg PO DAILY [facility] Last Admin: 02/13/17 11:03 Dose: 40 mg - Labs Labs: 02/14/17 06:26 02/14/17 06:26 - Additional Findings Additional findings: - Constitutional Appears: Non-toxic, No Acute Distress - Head Exam Head Exam: ATRAUMATIC, NORMAL INSPECTION - Eye Exam Eye Exam: EOMI, Normal appearance. absent: Scleral icterus - ENT Exam ENT Exam: Mucous Membranes Moist - Neck Exam Neck Exam: Full ROM - Respiratory Exam Respiratory Exam: Clear to Ausculation Bilateral, NORMAL BREATHING PATTERN. absent: Rales, Rhonchi, Wheezes - Cardiovascular Exam Cardiovascular Exam: REGULAR RHYTHM, +S1, +S2 - GI/Abdominal Exam GI & Abdominal Exam: Soft, Normal Bowel Sounds. absent: Tenderness - Extremities Exam Extremities Exam: Tenderness Additional comments: POD #2 ORIF C/D/I cast right ankle Sensation intact, able to wiggle toes cap refill < 2 sec No calf tenderness - Neurological Exam Neurological Exam: Alert, Awake, Oriented x3 - Psychiatric Exam Psychiatric exam: Normal Affect, Normal Mood Assessment and Plan - Assessment and Plan (Free Text) Plan: S/P R ORIF 1st and 2nd Metatarsal * POD #3 * Podiatry - Dr. Alejo * Tylenol PRN for pain, Percocet PRN for pain, Zofran PRN for nausea - as per primary team * Colace 100mg PO TID due to opioid * All management as per primary team, podiatry Impaired Glucose Tolerance * Accuchecks * Lipid Panel WNL * A1C:6.2 * Patient has impaired glucose tolerance. Important to diet and exercise and follow up with PMD to have his A1C rechecked. Electrolyte abnormalities * Hypokalemia, hypomagnesemia resolved Disposition: Primary team, podiatry, plan for discharge today. Medicine Team will be signing off of this patient. Thank you for the consult. Medicine recommends the patient to diet and exercise, cut back on sugary foods and drinks. Patient is to follow up closely with PMD to have this followed. Prophylactic Measures * GI PPX: Protonix 40mg PO daily * DVT PPX: SCDs, Heparin 5000u Q8H * Regular Diet Debra Benitez Dr., DO, PGY-1 <Keith Spaulding - Last Filed: 02/14/17 17:18> Objective - Vital Signs/Intake and Output Vital Signs (last 24 hours): Temp Pulse Resp BP Pulse Ox 97.9 F 75 20 123/70 97 02/14/17 07:40 02/14/17 07:40 02/14/17 07:40 02/14/17 07:40 02/14/17 07:40 Intake and Output: 02/14/17 02/14/17 06:59 18:59 Intake Total 420 Output Total 550 Balance -130 - Labs Labs: 02/14/17 06:26 02/14/17 06:26 Attending/Attestation - Attestation I have personally seen and examined this patient.: Yes I have fully participated in the care of the patient.: Yes I have reviewed all pertinent clinical information, including history, physical exam and plan: Yes Notes (Text): 02/14/17 17:16 Medical consult: Patient was seen and examined by me, agrees the above note by internist medical doctor md. The patient reported feeling well, he did not have any acute concerns or complaints but we saw him. From what I understand the patient is pending discharge at the moment. The patient reports that his pain is currently controlled with the medication this time Thank you very much, Keith Spaulding
--- NOTE | 2017-02-14 09:32 | RAD ---
PROCEDURE: Intraoperative Fluoroscopy. HISTORY: RIGHT FOOT fracture FINDINGS: Fluoroscopic assistance was provided for open reduction internal fixation of the right foot. Please refer to the operative report from
[2017-02-14] MEDS: Pantoprazole 40 mg EC Tab PO SCH (10:40)
--- NOTE | 2017-02-14 11:03 | CP.PCM.PN ---
Subjective - Date & Time of Evaluation Date of Evaluation: 02/14/17 Time of Evaluation: 11:16 - Subjective Subjective: Podiatry Progress Note - Dr. Alejo 51 year old male patient seen at bedside POD#3 Right lisfranc ORIF with fusion of 1st/2nd MT (DOS: 02/11/17). Patient seen resting comfortably at time of visit. Patient states that the pain is reduced now. Patient denies N/V/F/D/C/SOB /calf pain. Offers no other pedal complaints at this time. Patient is aware that he will be discharged home today. Objective - Vital Signs/Intake and Output Vital Signs (last 24 hours): Temp Pulse Resp BP Pulse Ox 97.9 F 75 20 123/70 97 02/14/17 07:40 02/14/17 07:40 02/14/17 07:40 02/14/17 07:40 02/14/17 07:40 Intake and Output: 02/14/17 02/14/17 06:59 18:59 Intake Total 420 Output Total 550 Balance -130 - Medications Medications: Current Medications Acetaminophen (Tylenol 325mg Tab) 650 mg PO Q6 PRN PRN Reason: Pain, Mild (1-3) Docusate Sodium (Colace) 100 mg PO TID [facility] Last Admin: 02/14/17 10:40 Dose: 100 mg Heparin Sodium (Porcine) (Heparin) 5,000 units SC Q8 [facility] Last Admin: 02/14/17 06:13 Dose: 5,000 units Insulin Human Regular (Novolin R) 0 unit SC ACHS [facility] PRN Reason: Protocol Last Admin: 02/14/17 08:05 Dose: Not Given Ondansetron HCl (Zofran Inj) 4 mg IVP Q6 PRN PRN Reason: Nausea/Vomiting Oxycodone/Acetaminophen (Percocet 5/325 Mg Tab) 1 tab PO Q6H PRN PRN Reason: Pain, moderate (4-7) Stop: 02/14/17 17:37 Oxycodone/Acetaminophen (Percocet 5/325 Mg Tab) 2 tab PO Q6H PRN PRN Reason: Pain, severe (8-10) Stop: 02/14/17 17:37 Last Admin: 02/14/17 06:09 Dose: 2 tab Pantoprazole Sodium (Protonix Ec Tab) 40 mg PO DAILY [facility] Last Admin: 02/14/17 10:40 Dose: 40 mg - Labs Labs: 02/14/17 06:26 02/14/17 06:26 - Constitutional Appears: Well, Non-toxic, No Acute Distress - Head Exam Head Exam: ATRAUMATIC - Extremities Exam Additional comments: Dressing to RLE appears clean/dry/intact with no strikethrough noted CFT <3 seconds to all distal osiris Active ROM noted to all digits No pain upon compression of right calf - Neurological Exam Neurological Exam: Alert, Awake, Oriented x3 - Psychiatric Exam Psychiatric exam: Normal Affect, Normal Mood - Skin Skin Exam: Normal Color, Warm Assessment and Plan - Assessment and Plan (Free Text) Assessment: 51 year old male POD#3 right lisfranc ORIF with fusion of 1st/2nd MT Plan: Patient seen and evaluated at bedside Discussed with attending, Dr. Alejo Labs and vitals reviewed - WBC 9.2, afebrile Stable from podiatry standpoint Plan for discharge today Patient was advised to follow up with Dr. Alejo upon discharge
--- NOTE | 2017-02-17 11:23 | PCM.OP ---
Operative Report - Operative Report Date of Surgery/Procedure: 02/11/17 Time of Surgery/Procedure: 15:00 Surgeon: Melo Stemming Machine Operator: Cali PGY 3, Tigre PGY 2 Anesthesia/Sedation: General Pre-Operative Diagnosis: Right lis franc fracture disclocation Post-Operative Diagnosis: Same Indication for Surgery: This is a 51 y/o male with the above mentioned diagnosis. The patient has exhausted all forms of conservative treatment at this time and wishes to have surgical managment for the conditions listed above. After careful explanation of risks beneifits and complications the patient signed the consent form. All Questions and concerns wre addressed at this time. Prior to taking patient to the OR NPO status was verified and antibiotics were given. Operative Findings: Patient was brought to the operating room adn placed on the OR table in supine position. A thigh tourniquet was placed on patiented right leg at 350mmHg w/o complicaiton. Following general sedation the right foot and ankle was prepped and draped in the normal sterile manner and the procedure begain. Procedure/Operation Description: #1 - Right foot Open reduction and Internal fixation of displaced lis franc injury with removal of painful hardware. At this time attention was directed tothe right foot whreutilizing the intra op florouscopy the K wires that had been placed in meagan by prior surgeon were marked on the foot. Utilizing a #15 blade a roughly 3cm long dorsomedial incison was made overlying the 1st MT cuneiform joint. This incison was then carried deep to the level of the perioesteum making sure to retract all vital neurovascular structures and ligate bleeders and necessary along the way. A this time the periosteum was incisied and reflected away from the MT-Cunieform joint. At this time the the first k wire came into view and was pulled from the bone and passed from the operative field. Attention was then directed overlying the 2nd MT cuneiform joint where a second incison was made just lateral to this in a linear type fashion roughly 3 cm long. The incison was carefully deepened making sure to retract all vital nuerovascular structures and ligate bleeders as necessary. The second k wire came into view exiting the dorsal aspect of the 2nd MT and was pulled w/o complication and passed from the operative field. Attention was then directed to the lateral aspect of the 5th MT where a small stab incision was made overlying the last k wire previously placed and the wire was pulled w/o complication. At this time the joints were then free to be reduced back into a good position. Attention was first directed back to the medial aspect of the foot where utilizing a bone clamp the cuneiforms were reduced and utilizing a second clamp the 2nd MT-cunieofmr joint was realigned. This reduced the first 1MT into a adequate aligment which allowed for a placement of a medial based synthes plate. Prior to the placement of the plate the cartilidge of both of the 1st-Metatarsal cuneiform joint and the 2nd metarsal cuneiform joint were both planed and resected to allow for proper fusion in the future w/o complication. Following resection the joints were flushed and bone fragments freed. It was noted that the quality of the bone at this time was very poor as well. A medial based synthes plate was then placed across the 1st MT cunieoform joint and filled with 3.5 non locking bi cortical screws distally. In the proximal most hole an intercunieform 3.5 screw was placed across from medial to lateral cuneiform to continue to hold reduction of the cuneiform dislocation. There was noted to be good reduction and good aposition of the joint to allow for proper fusion in the future. At this time attnetion was then directed over the 2nd metatarsal cuneiform joint where, with the clamp in place from the 2nd MT to medial cuniform a dorsally based plate was placed overlying the joint and filled with 2.0 synthes hand modular type screws. There was noted to be adequate compression across the joint and the reduction was holding well so at this time a K wire was then placed from the dorso lateral aspect of the 2nd MT into the medial cunieoform acting as a "home run" type screw and a 3.5 synthes cannulated screw was placed across this joint. Following this the wounds were flushed with copious amouns of normal sterile saline. All positiioning was finalized with use of intra op c - arm. The wounds were then closed wtih 2.0, 3.0, 4.0 Vicryl and 4.0 Nylon in normal technique. Estimated Blood Loss: <30 Complications: None Specimen: Wires Discharge & Condition: Patient tolerated anesthesia and procedure well and was transported to the recovery room with VSS and NVSI to the right foot. This patient is to be NWB to the right LE and will f/u in podiatry clinic in [facility] in 1 week.
== END 2017-02-14 15:50 | disposition home or self-care (01) ==
LOC: C.SDS 10:26 → C.9P 17:57 → INTOOBSV 17:57 → C.6T 20:03
PROVIDERS: ADMIT Podiatrist Foot & Ankle Surgery; ATTEND Podiatrist Foot & Ankle Surgery
DX: T84.84XA Pain due to internal orthopedic prosthetic devices, implants and grafts, initial encounter (principal); S92.911G Unspecified fracture of right toe(s), subsequent encounter for fracture with delayed healing; X58.XXXD Exposure to other specified factors, subsequent encounter; S92.311G Displaced fracture of first metatarsal bone, right foot, subsequent encounter for fracture with delayed healing; S92.321G Displaced fracture of second metatarsal bone, right foot, subsequent encounter for fracture with delayed healing
CPT/HCPCS: 28485; 36415; 73630; 80053; 80061; 82948; 83036; 83735; 84100; 85025; 96365; 96366; 96372; 96375; 97116; 97162; 97530; C1713; G0378; G8978; G8979; J0690; J1644; J1885; J2001; J2250; J2270; J2405; J2704; J2765; J3010; J3475; J7030; J7120